=== PATIENT | male | born 1985 | race African-American/Black ===

== ENCOUNTER 2018-05-20 02:34 | Emergency (ER) | payer SELFPAY ==
[~2018-05-20] VITALS: Ht 180.3 cm; Wt 83.9 kg
[2018-05-20 02:34] VITALS: BP 146/89
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
== END 2018-05-20 03:25 | disposition left against medical advice (07) ==
LOC: ER 02:34 → EEVIPCON 02:34 → ER 03:25
DX: S00.03XA Contusion of scalp, initial encounter (principal); Y08.89XA Assault by other specified means, initial encounter; Y93.89 Activity, other specified; Y92.89 Other specified places as the place of occurrence of the external cause; Y99.8 Other external cause status
CPT/HCPCS: 99281; 99285